=== PATIENT | male | born 1960 | race Caucasian/White ===

== ENCOUNTER → 2022-05-01 | Outpatient (CLI) | payer MEDICARE ==
[~2022-05-01] MED LIST: ASPIRIN CHEWABL81 MG PO; CARAFATE1 GM/10 ML PO; CIPRO500 MG PO; COZAAR100 MG PO; ELAVIL 25 MG TA25 MG PO; ELIQUIS5 MG PO; FLAGYL500 MG PO; FLOMAX0.4 MG PO; ISOSORBIDE MONO30 MG PO; K-DUR TAB 20 M20 MEQ PO; KEFLEX CAP 500500 MG PO; LIPITOR TAB 2020 MG PO; LOPRESSOR 25 MG25 MG PO; NEURONTIN 300300 MG PO; NORCO 10-325 T1 EACH PO; NORVASC2.5 MG PO; PROAIR HFA8.5 GM INH; PROTONIX 40 MG40 M1 PO; ROBAXIN 750 MG750 MG PO
[2022-05-01 09:44] LABS: HEMOGLOBIN 17.6 gm/dl (14.0-17.5); RED BLOOD COUNT 5.58 M/UL (4.20-5.50); WHITE BLOOD COUNT 8.5 K/UL (4.5-11.0)
== END ==
LOC: CT 09:20
PROVIDERS: Internal Medicine
DX: K57.32 Diverticulitis of large intestine without perforation or abscess without bleeding (principal); E55.9 Vitamin D deficiency, unspecified; L72.3 Sebaceous cyst; R31.0 Gross hematuria; K76.0 Fatty (change of) liver, not elsewhere classified
CPT/HCPCS: 36415; 80053; 81001; 82150; 83690; 85025; 86140; Q9967